=== PATIENT | female | born 1950 | race Caucasian/White ===

== ENCOUNTER 2016-11-10 16:53 | Emergency (ER) | payer MEDICARE, OTHER ==
[~2016-11-10] VITALS: Ht 170.2 cm; Wt 96.4 kg
[2016-11-10 17:45] VITALS: BP 136/61
== END 2016-11-10 17:50 | disposition home or self-care (01) ==
LOC: ED 16:56
DX: R20.8 Other disturbances of skin sensation (principal); F41.1 Generalized anxiety disorder
CPT/HCPCS: 99281; 99282

== ENCOUNTER → 2017-01-21 | Outpatient (CLI) | payer MEDICARE, OTHER ==
[~2017-01-21] MED LIST: CHOL10008 PO; CTLP20T PO; CYAN100088 PO; LISI1TAB6 PO; OMEP20CA12 PO; POLY17PO6 PO; SELE5TAB2 PO; SIMV40TA2 PO; SULF1TAB35 PO; [UNRECOGNIZED DRUG - CODE] PO
[2017-01-21 13:56] VITALS: BP 130/70
--- NOTE | 2017-01-21 13:57 | Urgent Care T Sheet Gen (E) ---
Intake General Temperature (Fahrenheit): 99.4 Pulse: 111 Blood Pressure Systolic: 130 Blood Pressure Diastolic: 70 Respirations: 18 SPO2: 96 Chief Complaint: UC Genitourinary Complaint Description of Symptoms Comes in today with her - she is upset- having bowel issues and now urine issues. Parkinsons is a new diagnosis in last few months and meds bother her. Had to disimpact herself yesterday but better today. no blood in stool. Dr Valle has done a colonoscopy for her in the past- normal. She does have h/o breast cancer. She has urine incontinence and urine has strong odor. no fevers. but low back pain and lower abdominal pain comes and goes. She is gassy and we have reviewed her med list- discussed other options for bowel movements..prune juice, apple juice, increasing stool softeners and miralax. No other issues today reported. Source: Family ( here), Patient History of Present Illness Onset & Duration: Days Timing: Still present Severity: Mild Recent Trauma: No Allergies: Coded Allergies: No Known Drug Allergies (Unverified , 01/21/17) Home Meds Reported Medications Polyethylene Glycol 3350 (Miralax)17 Gm Powd.pack17 Gm PO DAILY Constipation Ref 0 11/10/16 Cyanocobalamin (Vitamin B-12) (B-12)1,000 Mcg Tablet1,000 Mcg PO DAILY 11/10/16 Carbidopa/Levodopa (Carbidopa-Levodopa 10mg-100mg)1 Each Tablet1 Each PO TID 11/10/16 Selegiline HCl 5 Mg Tablet5 Mg PO DAILY 11/10/16 Cholecalciferol (Vitamin D3) (Vitamin D3)1,000 Unit Tab.chew1,000 Unit PO DAILY Vitamin/Mineral Supplemnt Ref 0 11/10/16 Citalopram Hydrobromide 20 Mg Adwvkz79 Mg PO DAILY 11/10/16 Simvastatin 40 Mg Epvclo48 Mg PO DAILY 11/10/16 Omeprazole 20 Mg Capsule.dr20 Mg PO DAILY 11/10/16 Lisinopril/Hydrochlorothiazide (Lisinopril-HCTZ 10-12.5 mg Tab)1 Each Tablet1 Each PO DAILY 11/10/16 Respiratory Constitutional Symptoms: No Fever Respiratory: No symptoms reported Cardiovascular: No symptoms reported Genitourinary: Dysuria Frequency Pain All Other Systems Reviewed Remaining Systems: All other systems reviewed with negative findings Past Easlsxq-Tupmcx-Lqtuso Hx Patient's Social History Alcohol Use: Denies Use Smoking Status: Never smoker Surgeries/Hospitalizations Hospitalization/Surgery Hx: BREAST CA L SIDED MASECTOMY TOE SURGERY HTN CHOLESTEROL GERD PARKINSONS ANXIETY Respiratory Respiratory History: None Cardiovascular Cardiovascular History: Hypertension, Hypercholesterolemia Gastrointestinal GI/Endocrine History: GERD Diabetes Diabetes: No HEENT Impaired Vision: Glasses Hearing Impaired: None Psychosocial Behavior Disorders: Anxiety Physical Exam Physical Exam General Appearance: WD/WN No apparent distress Eyes, Ears, Nose, Throat Ex: PERRL/EOMI Neck Exam: Full range of motion Supple Normal inspection Normal thyroid Respiratory Exam: Lungs clear Normal breath sounds No respiratory distressNo Accessory muscle use Cardiovascular Exam: Regular rate, rhythm No murmur GI/ Exam: Non tender No organomegaly Normal bowel sounds Back Exam: Normal Inspection No CVA tenderness Skin Exam: Normal color Warm/dry/intact No rashes Progress/Orders Lab Results Labs Results: UA (positive for leukocytes and blood, nitrates ++odor concentrated dark yellow urine) Departure Urgent Care Impression Chief Complaint: UC Genitourinary Complaint Impression: Primary Impression: Urinary tract infection Qualified Code: N30.00 - Acute cystitis without hematuria Departure Disposition: HOME OR SELF-CARE Condition: Stable Referrals: Emiliano Steel MD (PCP) Additional Instructions: Long talk with her and her Tylenol for pain or fever rest hydrate Spoke with Prosper at Dr Steel office- pt needs follow up discussed bowels and her issue with that B/P was 180/95 when she arrived but rechecked to 130/70- shes anxious and wants reassurance Urine culture done and sent to [facility] Will discuss with Dr Steel about what med he would like to use for UTI- follow up etc.- Dr Steel called agrees to Bactrim DS and he will see her Saturday and office to call pt. Scripts Sulfamethoxazole/Trimethoprim (Bactrim DS)1 Each Tablet1 Tab PO BID Infection # 14 TAB Ref 0 Prov:SHENA WILLIS APRN () 01/21/17 End of report . SHENA WILLIS APRN () Jan 21, 2017 13:56
--- NOTE | 2017-01-23 15:28 | Urgent Care Follow Up Note (E) ---
Urgent Care Follow Up Note Urine culture showed "no growth" Scripts Sulfamethoxazole/Trimethoprim (Bactrim DS)1 Each Tablet1 Tab PO BID Infection # 14 TAB Ref 0 Prov:SHENA WILLIS APRN () 01/21/17 JERMAINE RUEDA Jan 23, 2017 15:28
== END ==
LOC: MHUC 13:07
PROVIDERS: ATTEND Nurse Practitioner
DX: N30.00 Acute cystitis without hematuria (principal)
CPT/HCPCS: 81002; 99213